=== PATIENT | female | born 2000 | race Hispanic/Latino ===

== ENCOUNTER 2021-08-31 00:17 | Emergency (ER) | payer SELFPAY ==
[~2021-08-31] VITALS: Ht 162.6 cm; Wt 131.5 kg
[2021-08-31] MEDS ORDERED: IBUPROFEN 600 MG TAB PO STA (01:09)
[2021-08-31] MEDS ORDERED: BACTRIM DS TAB1 EACH PO (01:23)
[2021-08-31] MEDS ORDERED: CLINDAMYCIN HC150 MG PO (01:23)
[2021-08-31] MEDS ORDERED: NAPROSYN500 MG PO (01:23)
[2021-08-31] MEDS ORDERED: IBUPROFEN 600 MG TAB ONE (01:31)
== END 2021-08-31 01:30 | disposition home or self-care (01) ==
LOC: ER 01:07
DX: L02.31 Cutaneous abscess of buttock (principal)
CPT/HCPCS: 99283